=== PATIENT | male | born 1960 | race Caucasian/White ===

== ENCOUNTER 2024-11-28 05:35 | Emergency (ER) | payer MEDICARE, OTHER, MEDICAID ==
[~2024-11-28] VITALS: Ht 172.7 cm; Wt 87.0 kg
[2024-11-28 05:40] VITALS: O2SAT 93
[2024-11-28] MEDS ORDERED: ACETAMINOPHEN 325MG TABLET PO STA (05:43)
[2024-11-28] MEDS: SODIUM CHLORIDE 0.9% (SEPSIS BOLUS) IV ONE (06:25)
[2024-11-28 06:26] VITALS: BP 118/71; PULSE 73; RESP 12; TEMP 36.55848; O2SAT 94
[2024-11-28 06:43] LABS: PROTHROMBIN TIME 10.9 sec (9.6-11.0)
[2024-11-28 06:44] LABS: HEMATOCRIT. 43.1 % (42.0-52.0); HEMOGLOBIN. 14.2 g/dL (14.0-18.0); MEAN CORPUSCULAR HEMOGLOBIN 29.5 pg (28.0-32.0); MEAN CORPUSCULAR VOLUME 89.6 fL (80.0-94.0); MEAN PLATELET VOLUME 8.6 fl (7.4-10.4); PLATELET 176 x1000/uL (130-400); RED BLOOD CELL COUNT 4.81 mill/uL (4.7-6.1); WHITE BLOOD COUNT 3.4 x1000/uL (4.5-11.0)
[2024-11-28 06:50] LABS: CHLORIDE 99 mEq/L (98-107); POTASSIUM 4.1 mEq/L (3.5-5.1); SODIUM 135 mEq/L (136-145)
[2024-11-28 06:51] LABS: CALCIUM 9.6 mg/dL (8.7-10.4); CARBON DIOXIDE 29 mEq/L (21-32); DIFFERENTIAL COMMENT 1
[2024-11-28 06:56] LABS: CREATININE 1.4 mg/dL (0.6-1.3); GLUCOSE 174 mg/dL (70-105); UREA NITROGEN BLOOD 23 mg/dL (9-23)
[2024-11-28 07:01] LABS: ETHANOL BLOOD < 10 mg/dL (<10)
[2024-11-28 08:53] LABS: CLARITY URINE CLEAR (CLEAR); COLOR URINE YELLOW (YELLOW); GLUCOSE URINE NEGATIVE (NEGATIVE); KETONES URINE NEGATIVE (NEGATIVE); LEUKOCYTE ESTERASE URINE NEGATIVE (NEGATIVE); NITRITE URINE NEGATIVE (NEGATIVE); OCCULT BLOOD URINE NEGATIVE (NEGATIVE); PH URINE 5.5 (4.5-8.0); PROTEIN URINE NEGATIVE (NEGATIVE); SPECIFIC GRAVITY URINE 1.019 (1.005-1.030); UROBILINOGEN URINE 0.2 E.U./dL (0.2-1.0)
[2024-11-28 09:15] LABS: *AMPHETAMINES SCREEN URINE NEGATIVE (NEGATIVE)
[2024-11-28 09:16] LABS: *BARBITURATES SCREEN URINE NEGATIVE (NEGATIVE); *BENZODIAZEPINES SCREEN URINE NEGATIVE (NEGATIVE); *COCAINE SCREEN URINE NEGATIVE (NEGATIVE); CANNABINOID URINE SCREEN NEGATIVE (NEGATIVE); ECSTASY MDMA SCREEN URINE NEGATIVE (NEGATIVE); METHADONE URINE SCREEN NEGATIVE (NEGATIVE); OPIATES URINE SCREEN NEGATIVE (NEGATIVE); PHENCYCLIDINE URINE SCREEN NEGATIVE (NEGATIVE)
[2024-11-28 11:48] LABS: ATYPICAL LYMPHOCYTES 1
[2024-11-28 11:49] LABS: PLATELET ESTIMATE NORMAL; TOXIC VACUOLATION FEW
== END 2024-11-28 10:06 | disposition home or self-care (01) ==
LOC: ER 05:35
DX: R55 Syncope and collapse (principal); B34.9 Viral infection, unspecified; E11.9 Type 2 diabetes mellitus without complications; J45.909 Unspecified asthma, uncomplicated; I10 Essential (primary) hypertension; Z88.2 Allergy status to sulfonamides
CPT/HCPCS: 80305; 80048; 81003; 80320; 82962; 83605; 85025; 85610; 87040; 87804 ×2; 36415; 71045; 70450; 93005; 96360; 99285; J7030; G0480